=== PATIENT | female | born 2000 | race Caucasian/White ===

== ENCOUNTER 2023-12-24 19:14 | Emergency (ER) | payer BC, SELFPAY ==
[2023-12-24 19:18] VITALS: BP 127/82
[2023-12-24 19:59] VITALS: BMI 25.5
--- NOTE | 2023-12-24 20:35 | ED.GENMED ---
History of Present Illness
General
Chief Complaint: Extremity Pain (non-traumatic)
Source: patient and family
Time Seen by Provider: 12/24/23 19:51
Travel History
Have you had any contact with someone who has COVID-19?: No
Do you have any symptoms of coronavirus? Fever > 100 degrees, chills, cough, shortness of breath, sore throat, loss of taste or smell, muscle aches, or headache?: No
History of Present Illness
History of Present Illness:
23-year-old female with past medical history of small fiber neuropathy, colonic inertia, questionable POTS presenting to the emergency department for evaluation after she was driving around 50 minutes prior to arrival when she developed pain in her
left upper arm as well as paresthesias to the fingertips, symptoms were persistent in nature and due to her history of POTS and sinus tachycardia was concern for possible cardiac event so mother brought patient to the ER for further evaluation.
Patient has an appointment scheduled with a greenhouse laborer at the [facility] which is where she follows with her neurologist for her small fiber neuropathy and has not been seen by another greenhouse laborer as of yet. There is no family history for
cardiac disease. Patient has no other risk factors for cardiac disease. She denies any chest pain.
Past History
Past History
ED Past Medical History: Other (Small fiber neuropathy, colonic inertia, possible POTS)
ED Past Surgical History: Other (PEG tube)
Social History
Tobacco: Non-smoker
Alcohol: None
Drug: None
Personal: Single
Living: with family
Review of Systems
Review of Systems
All Other Systems: ROS reviewed and negative except as documented in HPI and ROS
Phy Exam
Physical Exam
Physical Exam:
GENERAL: Alert , in no apparent distress
EYE: conjunctiva clear
NECK: Supple
ENT: o/p clr, mmm.
CARDIAC: Regular rate and rhythm
LUNGS: Clear breath sounds bilaterally, no acute respiratory distress, no wheezes/rales/rhonchi
NEUROLOGICAL: Alert and oriented
SKIN: Warm and dry, skin intact.
MUSCULOSKELETAL: well perfused. Easily palpable radial pulses
PSYCH: Normal and appropriate interaction.
Scores
Heart Failure Risk
Heart Failure Risk Score: Not Applicable
Heart Score for Chest Pain Patients
STEMI patient?: Not applicable
Withdrawal Assessment of Alcohol
Withdrawal Assessment Completed?: Not applicable
Course
Orders/Labs/Results
Orders:
Orders
12/24/23 19:17
EKG [Electrocardiogram (*1)] Urgent
Reason for Study: Other
Other Reason for Exam: L arm pain
12/24/23 19:18
EKG- Treatment ONCE
Vital Signs
Initial and Last Documented VS:
Initial Vital Signs
Temp Pulse Resp BP Pulse Ox
98.3 F 83 18 127/82 98
12/24/23 19:18 12/24/23 19:18 12/24/23 19:18 12/24/23 19:18 12/24/23 19:18
Last Documented Vital Signs
Temp Pulse Resp BP Pulse Ox
98.3 F 83 18 127/82 97
12/24/23 19:18 12/24/23 19:18 12/24/23 19:18 12/24/23 19:18 12/24/23 19:59
MDM/Problems Addressed
Differential Diagnosis Includes:
Radiculopathy, neuropathy, I do not have concern for ACS
MDM/Problems Addressed:
23-year-old female present emergency [facility] for evaluation of pain to her left upper extremity that she did note radiated towards her jaw earlier today and paresthesia to the fingertips, concern for possible cardiac event. Patient's notes she
still has the pain in her arm and paresthesia in her fingertips upon arrival to the emergency department. EKG was done in triage and shows a sinus rhythm without any evidence for ischemia. She is hemodynamically stable and well-appearing. Patient
has no risk factors for cardiac event nor DVT/PE. Ultimately I do not suspect any acute emergent pathologies and I discussed this with the patient and mother. They feel comfortable being discharged home with outpatient follow-up as scheduled. I
did provide them with a local greenhouse laborer information if they so wish to follow-up with a greenhouse laborer sooner.
*Pulse Oximetry
Patient hypoxic: no
*EKG
Interpreted by ED Provider?: Yes
Comparison EKG: no comparison EKG present
Heart Rate: 74
Rate: normal
Rhythm: sinus
[place]: normal axis
Ischemia: no ischemia
*[place] Department Operator Interpretation
Rate: normal
Rhythm: sinus
*Critical Care Note
Total Time (30-74mins, 75-104mins- exclusive of procedures): Not Applicable
ED Attending Note
-
Portions of this chart may have been created with voice recognition software.� Occasional wrong word or��sound alike� substitutions may have occurred due to the inherent limitations of voice recognition software.
Discharge Plan
Departure
Patient Disposition: Home (Routine Discharge)
Date of Disposition: 12/24/23
Time of Disposition: 20:35
Patient with high blood pressure during this ER visit?: No
Discharge Problem:
left upper extremity radiculopathy
Instructions: Radiculopathy (DC)
Prescriptions:
No Action
ibuprofen 600 MG tablet
600 mg PO Q6 Qty: 20 0RF
Referrals:
Jasper Keller MD [Active] -
(Cardiology
)
Interventions
Interventions:
*Risk Screen - Suicide Last Done: 12/24/23 19:18
*General Assessment Last Done: 12/24/23 19:22
*Neglect/Abuse Screening Last Done: 12/24/23 19:22
ED- Fall Risk Assessment Last Done: 12/24/23 19:59
*ED COVID-19 Vaccine History Last Done: 12/24/23 19:22
*Nursing Disposition Last Done: 12/24/23 20:51
ED-Skin Assessment Last Done: 12/24/23 19:59
ED-Peripheral Vascular Assessment Last Done: 12/24/23 20:02
ED-Musculoskeletal Assessment Last Done: 12/24/23 19:59
Discharge Date and Time
Discharge Date/Time: 12/24/23 20:56
Print Language: H[place] K[place]
== END 2023-12-24 20:56 | disposition home or self-care (01) ==
LOC: EMR 19:14
PROVIDERS: EMERGENCY PHYSICIAN Emergency Medicine
DX: M54.10 Radiculopathy, site unspecified (principal); M79.622 Pain in left upper arm; R20.2 Paresthesia of skin; G62.9 Polyneuropathy, unspecified; Z93.1 Gastrostomy status; Z88.1 Allergy status to other antibiotic agents
CPT/HCPCS: 99283; 93005

== ENCOUNTER 2025-08-05 10:23 | Emergency (ER) | payer BC, SELFPAY ==
[2025-08-05 10:34] VITALS: BP 124/81
[2025-08-05 11:15] VITALS: BMI 23.7
--- NOTE | 2025-08-05 11:43 | ED.GENMED ---
History of Present Illness
General
Chief Complaint: Numbness
Time Seen by Provider: 08/05/25 11:02
History of Present Illness
History of Present Illness:
24-year-old female with past medical history of nonepileptic seizures, POTS, gastroparesis, colonic paralysis with G-tube dependence presenting to the emergency department for diffuse numbness. Patient reports for the past 4 days she has been
having a numbness sensation to all of her extremities. She also feels fogginess in her head. Patient notes complex chronic medical issues, follows at the [facility] for management. She started amantadine 3 weeks ago for her symptoms,
however was unsure if this was contributing to her numbness, so abruptly stopped the medication on . Denies any change in her symptoms or improvement. Reports generalized weakness. Denies fall or trauma. Denies chest pain or difficulty
breathing. Denies any recent fever or illness. Denies history of medical complaints
Past History
Past History
ED Past Medical History: Other (Small fiber neuropathy, colonic inertia, possible POTS)
ED Past Surgical History: Other (PEG tube)
Social History
Tobacco: Non-smoker
Alcohol: None
Drug: None
Personal: Single
Living: with family
Phy Exam
Physical Exam
Physical Exam:
General: Well-appearing, no clinical signs of dehydration, nontoxic and in no acute distress
HEENT: protecting airway
Neck: appears supple
CV: Normal heart rate, regular rhythm
Resp: No accessory muscle use, no increased work of breathing, lungs clear to auscultation bilaterally
Abd: No distention
Extremities: No deformities, no swelling, no erythema, pulses and sensation intact
Neuro: alert, reported diminished sensation to all extremities, however sensation is globally intact. Range of motion of all extremities is intact with normal strength
: deferred
Rectal: deferred
Psych: Normal affect
Skin: Intact
Course
Orders/Labs/Results
Orders:
Orders
08/05/25 11:34
Test Result ONCE
08/05/25 11:47
Complete Blood Count/With Diff Urgent
Comprehensive Metabolic Panel Urgent
HCG, Serum Qualitative Screen Urgent
Magnesium Urgent
TSH Reflex To Free T4 Urgent
08/05/25 12:00
Urinalysis Reflex To Culture Urgent
Date Specimen was Collected: 08/05/25
Time Specimen was Collected: 11:56
Abnormal Lab Results
08/05/25
11:47
RDW 11.4 L %
(11.5-14.5)
08/05/25 11:47
08/05/25 11:47
Vital Signs
Initial and Last Documented VS:
Initial Vital Signs
Temp Pulse Resp BP Pulse Ox
99.1 F 82 16 124/81 100
08/05/25 10:34 08/05/25 10:34 08/05/25 10:34 08/05/25 10:34 08/05/25 10:34
Last Documented Vital Signs
Temp Pulse Resp BP Pulse Ox
99.1 F 82 16 124/81 100
08/05/25 10:34 08/05/25 10:34 08/05/25 10:34 08/05/25 10:34 08/05/25 11:46
MDM/Problems Addressed
MDM/Problems Addressed:
24-year-old female with past medical history of nonepileptic seizures, POTS, gastroparesis, colonic paralysis with G-tube dependence presenting for diffuse numbness sensation to her body. Vital signs on arrival are normal.
On exam patient is resting comfortably, no acute distress or discomfort. Patient afebrile, nontoxic. Regarding patient's symptoms, without present concern for central neurologic process with intact strength and sensation bilaterally. Patient
reports a diffuse numbness sensation, which appears to be more consistent with paresthesias than true numbness. Sensation is intact. Do not suspect CVA. No indication for advanced head imaging. Possible metabolic component to symptoms versus
medication reaction from her amantadine. Does note that she abruptly stopped the medication on , however without present concern for neuroleptic malignant syndrome, no muscle stiffness, no confusion, no delirium, no high fever, heart rate
within normal limits, blood pressure within normal limits, no sweating or flushing, no incontinence, no tremors. Will screen with laboratory analysis including electrolyte panel, CBC, TSH, magnesium
13:30 - Labs are unremarkable patient remained stable again neurologically intact. Feel stable for discharge, is going to [facility] on Wednesday. Given close and appropriate follow-up, again stable for discharge. Advise talking to her doctor and
prescribing physician regarding her medications. Return precautions discussed and patient verbalized understanding
*Pulse Oximetry
SaO2: 100
Oxygen Mode of Delivery: Room air
Patient hypoxic: no
*Critical Care Note
Total Time (30-74mins, 75-104mins- exclusive of procedures): Not Applicable
ED Attending Note
-
Portions of this chart may have been created with voice recognition software.� Occasional wrong word or��sound alike� substitutions may have occurred due to the inherent limitations of voice recognition software.
Discharge Plan
Departure
Patient Disposition: Home (Routine Discharge)
Date of Disposition: 08/05/25
Time of Disposition: 13:31
Patient with high blood pressure during this ER visit?: No
Condition: Good
Discharge Problem:
Paresthesia
Instructions: Paresthesia (DC)
Prescriptions:
No Action
ibuprofen 600 MG tablet
600 mg PO Q6 Qty: 20 0RF
Referrals:
Nathaniel Moya MD [Family Provider]
Activity Restrictions/Additional Instructions:
You were seen in the emergency department for numbness sensation to your arms and legs
You were found to have reassuring vital signs and laboratory analysis. We recommend that you follow-up with your care team at the [facility] on Wednesday as scheduled.
Please follow-up closely with your primary care physician.
Return to the emergency department for any worsening of your symptoms, or any development of chest pain, difficulty breathing, abdominal pain with persistent vomiting and inability to tolerate food or liquid by mouth (concern for dehydration),
weakness, headache or confusion, fever greater than 100.4, or any additional symptoms that are concerning to you.
Thank you for choosing [facility].
Interventions
Interventions:
*Risk Screen - Suicide Last Done: 08/05/25 10:34
*General Assessment Last Done: 08/05/25 10:34
*Neglect/Abuse Screening Last Done: 08/05/25 10:34
*ED- Fall Risk Assessment Last Done: 08/05/25 11:35
*ED COVID-19 Vaccine History Last Done: 08/05/25 11:35
ED- Neurological Assessment Last Done: 08/05/25 11:18
Discharge Date and Time
Print Language: DANISH
[2025-08-05 11:59] LABS: Hematocrit 37.2 % (37.0-47.0); Hemoglobin 13.1 g/dL (12.0-16.0); Mean Corp Hgb Conc. 35.2 g/dL (33.0-37.0); Mean Corpuscular Volume 84.4 fL (81.0-99.0); Nucleated Red Blood Cells % 0 %; Platelet Count 184 10^3/uL (130-400); Red Cell Dist. Width 11.4 % (11.5-14.5)
[2025-08-05 12:12] LABS: Urine Character Clear (Clear)
[2025-08-05 12:20] LABS: HCG, Serum Qualitative Screen Negative
[2025-08-05 12:30] LABS: ALT (SGPT) 15 U/L (0-35); AST (SGOT) 26 U/L (14-36); Albumin 4.0 g/dl (3.5-5.0); Alkaline Phosphatase 45 U/L (38-126); Blood Urea Nitrogen 11 mg/dl (7-17); Calcium 9.0 mg/dl (8.4-10.2); Carbon Dioxide 25 mmol/L (22-30); Chloride 105 mmol/L (98-107); Estimated Creatinine Clearance 116 ml/min; Glucose 89 mg/dl (70-99); Magnesium 1.7 mg/dl (1.6-2.3); Potassium 4.1 mmol/L (3.5-5.1); Sodium 135 mmol/L (135-145); Total Protein 6.5 g/dl (6.3-8.2); eGFR > 60.00
[2025-08-05 13:00] VITALS: BP 124/73
== END 2025-08-05 14:09 | disposition home or self-care (01) ==
LOC: EMR 10:23
PROVIDERS: EMERGENCY PHYSICIAN Student in an Organized Health Care Education/Training Program; FAMILY PHYSICIAN Internal Medicine
DX: R20.2 Paresthesia of skin (principal); G90.A Postural orthostatic tachycardia syndrome [POTS]; F44.5 Conversion disorder with seizures or convulsions; K31.84 Gastroparesis; K31.89 Other diseases of stomach and duodenum; G60.8 Other hereditary and idiopathic neuropathies; Z93.1 Gastrostomy status
CPT/HCPCS: 99283; 80053; 81003; 83735; 84443; 84703; 85025